=== PATIENT | female | born 1945 | race Caucasian/White ===

== ENCOUNTER → 2019-01-09 09:14 | Outpatient (CLI) | payer MEDICARE, OTHER, SELFPAY ==
[2019-01-09 09:36] LABS: Influenza A and B by PCR Rapid Negative (Negative)
== END ==
PROVIDERS: Family Provider Physician Assistant Medical; PCP Family Medicine Geriatric Medicine; Visit Provider Physician Assistant
DX: R68.89 Other general symptoms and signs (principal)
CPT/HCPCS: 87400

== ENCOUNTER → 2023-06-17 11:15 | Outpatient (CLI) | payer MEDICARE, OTHER, SELFPAY ==
--- NOTE | 2023-06-17 | DI.MG.S_ITS ---
BILATERAL DIGITAL SCREENING MAMMOGRAM 3D/2D WITH CAD: 06/17/2023 CLINICAL: Routine screening. Comparison is made to exams dated: 08/29/2017 mammogram - [facility], 08/13/2017 mammogram - [facility], 04/19/2016 mammogram, 04/05/2016 mammogram - [facility], and 09/28/2014 mammogram - [facility]. Both breasts are heterogeneously dense, which may obscure small masses (category c / 51-75% glandular tissue). Current study was also evaluated with a Computer Aided Detection (CAD) system. No significant masses, calcifications, or other findings are seen in either breast. There has been no significant interval change. IMPRESSION: NEGATIVE There is no mammographic evidence of malignancy. A 1 year screening mammogram is recommended. Based on the Tyrer Cuzick model (a risk assessment model) the patient's lifetime risk is 7.0% and her 10 year risk is 0.0%. According to the ACR, ACS, and NCCN guidelines, an annual breast MRI exam along with mammogram is recommended if the patient's lifetime risk is 20% or greater. This exam was interpreted at Station ID: [id number]. NOTE: For mammograms, a report in lay terms will be sent to the patient. Approximately 15% of breast malignancies will not be visualized mammographically. In the management of a palpable breast mass, a negative mammogram must not discourage biopsy of a clinically suspicious lesion. Electronically Signed By: Faustino harding/arcenio:06/17/2023 13:10:02 letter sent: Normal Exam ACR BI-RADS Category 1: Negative [id number]
--- NOTE | 2023-06-17 | DI.RAD.S_ITS ---
PROCEDURE: XR KNEE LT 3V INDICATIONS: ROUTINE SCREENING/ PAIN IN LEFT KNEEE TECHNIQUE: 3 views of the knee were acquired. COMPARISON: None. FINDINGS: Bones: No fractures or dislocations. No suspicious bony lesions. Moderate tricompartmental arthritic change. No erosions. Minimal periarticular osteophytes. Soft tissues: Mild joint effusion. No suspicious soft tissue calcifications. IMPRESSION: Moderate tricompartmental arthritic change. Dictated by: Kaylin Flores M.D. on 06/17/2023 at 17:06 Approved by: Kaylin Flores M.D. on 06/17/2023 at 17:06
== END ==
PROVIDERS: Family Provider Physician Assistant Medical; PCP Physician Assistant Medical; Referring Provider Physician Assistant Medical; Visit Provider Physician Assistant Medical
DX: Z12.31 Encounter for screening mammogram for malignant neoplasm of breast (principal); M25.561 Pain in right knee; M25.462 Effusion, left knee
CPT/HCPCS: 73562; 77063; 77067

== ENCOUNTER 2024-05-29 10:39 | Observation (INO) | payer MEDICARE, OTHER, SELFPAY ==
[2024-05-29] VITALS (19 sets, daily range): BP systolic 139–178; BP diastolic 67–90; PULSE 65–97; RESP 16–25; TEMP 36.7–36.9; O2SAT 94–99; BMI 23.0
--- NOTE | 2024-05-29 11:20 | DI.CT.S_ITS ---
PROCEDURE: CT LUMBAR SPINE WO CON INDICATIONS: Fall/pain TECHNIQUE: Noncontrast 3 mm thick sections acquired from the T12 level to the sacrum. Sagittal and coronal reformats were constructed. For radiation dose reduction, the following was used: automated exposure control. COMPARISON: None. FINDINGS: Image quality: Excellent. Bones: Mild dextrocurvature centered at T12. Mild degenerative change. Lower lumbar facet arthropathy. No significant canal stenosis or foraminal stenosis. No acute vertebral body compression fractures. No suspicious lytic or blastic bony lesions. No pars defects. Soft tissues: No retroperitoneal masses or hematomas. Visualized aorta is normal in caliber. IMPRESSION: No acute compression fractures. No acute bony abnormality. Dictated by: Bryn Fuller M.D. on 05/29/2024 at 12:44 Approved by: Bryn Fuller M.D. on 05/29/2024 at 12:47
--- NOTE | 2024-05-29 11:20 | DI.CT.S_ITS ---
PROCEDURE: CT ANGIO HEAD AND NECK INDICATIONS: Fall/pain TECHNIQUE: After the administration of intravenous contrast, 1 mm thick sections acquired from the aortic arch through the [place]. 3-dimensional airmpfm-ckidmzyne-idqcgxwgun (MIP) and/or volume rendering reformats were acquired of the central intracranial vasculature and neck separately. For radiation dose reduction, the following was used: automated exposure control, adjustment of mA and/or kV according to patient size. COMPARISON: [facility], CT, CT HEAD/BRAIN WO CON, 05/29/2024, 11:33. FINDINGS: Image quality: Diagnostic. BRAIN: CSF spaces: Ventricles are normal in size and shape. Basal cisterns are patent. No extra-axial fluid collections. Brain: Accompanying CT head demonstrates no acute intracranial process. Skull and face: Calvarium and facial bones appear intact, without suspicious lesions. Orbits appear normal. Sinuses: Sinuses and mastoids are clear. HEAD CT ANGIOGRAPHY: Anterior circulation: Intracranial internal carotid arteries are normal in size and flow. The flow within the paired anterior cerebral arteries is normal and symmetric. The flow within the middle cerebral arteries is normal and symmetric. Note is made of focal calcification in the wall of the right middle cerebral artery M1 segment without stenosis. The anterior communicating artery is seen. No aneurysms are seen. Posterior circulation: Visualized portions of the vertebral arteries demonstrate normal caliber, and join to form a normal appearing basilar artery. Flow within the posterior cerebral arteries is normal and symmetric. No aneurysms are seen. NECK CT ANGIOGRAPHY: Carotid system: The great vessels demonstrate a conventional anatomy as they arise from the aortic arch. The origins of the common carotid arteries appear patent. The common carotid arteries demonstrate normal caliber and courses. The bifurcation regions are both widely patent. The internal carotid arteries demonstrate normal caliber superior the high cervical left internal carotid artery is incidentally noted to be medially directed anterior to the C2 vertebral body. Posterior circulation: The origins of the vertebral arteries both appear widely patent. The more superior extracranial portions of both vertebral arteries also demonstrate normal courses and calibers. They join to form a normal appearing basilar artery. Soft tissues: Visualized neck soft tissues demonstrate no suspicious abnormalities. Bones: No suspicious bony lesions. Visualized cervical spine appears normally aligned. IMPRESSION: No significant intracranial arterial abnormality is seen. No significant abnormality is seen within the arteries of the neck. Incidental note made of medial location of the high cervical left internal carotid anterior to the C2 vertebral body. Any quantitative measurements of stenosis were performed using NASCET criteria. Dictated by: Bryn Fuller M.D. on 05/29/2024 at 12:48 Approved by: Bryn Fuller M.D. on 05/29/2024 at 12:52
--- NOTE | 2024-05-29 11:20 | DI.CT.S_ITS ---
PROCEDURE: CT HEAD/BRAIN WO CON INDICATIONS: Fall/pain TECHNIQUE: Noncontrast 4.5 mm thick angled axial sections acquired from the foramen magnum to the vertex, with coronal and sagittal reformats. For radiation dose reduction, the following was used: automated exposure control, adjustment of mA and/or kV according to patient size. COMPARISON: None. FINDINGS: Image quality: Diagnostic. CSF spaces: Basal cisterns are patent. No extra-axial fluid collections. The ventricles are symmetric in size and shape. Brain: No intracranial bleeds or masses. There is cerebral volume loss for age, with resultant ventricular and sulcal prominence. There are periventricular and deep white matter chronic small vessel ischemic changes. There is intracranial internal carotid artery atherosclerosis. Skull and face: Calvarium and visualized facial bones appear intact, without suspicious lesions. Sinuses: Visualized sinuses and mastoids are clear. IMPRESSION: No acute intracranial pathology. Dictated by: Bryn Fuller M.D. on 05/29/2024 at 12:47 Approved by: Bryn Fuller M.D. on 05/29/2024 at 12:48
--- NOTE | 2024-05-29 11:22 | ED.NEUROSD ---
HPI - Neuro Symptoms/Deficit General Chief Complaint: Neuro Symptoms/Deficit Stated Complaint: arellano spot in vision, poss stroke sent by provider Time Seen by Provider: 05/29/24 11:13 History of Present Illness HPI Narrative: Patient sent here by Dr. Rey, spout tender concerning for left eye retinal artery occlusion. Concerning for a stroke. He did eye exam on patient. Patient denies any numbness tingling weakness slurred speech facial droop. Friend at bedside. No prior history of stroke. Patient is not on any blood thinners. Patient states yesterday morning around 7:00 a.m. had sudden onset of left eye visual disturbance, visual field around the 7 9 o'clock position of the clock where she can not see very well. Denies any eye pain. Later in the day she was working in his shed trying to put up some plywood and she fell and hit her head on the right side. Has had headache since then. Patient is not on any blood thinners. Also complains of neck pain and lower back pain. Fast exam is negative. Blood pressure noted and patient states usually not elevated. Denies any chest pain numbness tingling or weakness. On Anticoagulants: No Related Data Home Medications Medication Instructions Recorded Confirmed cholecalciferol (vitamin D3) 25 5,000 u PO QDAY ##0 11/27/16 05/29/24 mcg (1,000 unit) tablet (Vitamin D3) clonazepam 0.5 % (w/w) PO DAILY PRN Insomnia 01/09/19 05/29/24 gabapentin 600 mg tablet 600 mg PO BID 01/09/19 05/29/24 omeprazole 20 mg capsule,delayed 20 mg PO DAILY 01/09/19 05/29/24 release glucosamine-chondroitin 1,500 mg 30 ml PO DAILY 05/29/24 05/29/24 -1,200 mg/30 mL oral liquid turmeric 400 mg capsule 400 mg PO DAILY 05/29/24 05/29/24 Previous Rx's Medication Instructions Recorded aspirin 81 mg tablet,delayed 81 mg PO BID #90 tabs 05/30/24 release atorvastatin 20 mg tablet 40 mg (2 x 20 mg) PO BEDTIME #90 05/30/24 tabs clopidogrel 75 mg tablet 75 mg PO DAILY #19 tabs 05/30/24 Allergies Allergy/AdvReac Type Severity Reaction Status Date / Time No Known Allergies Allergy Unknown Verified 04/12/19 09:17 [NO KNOWN ALLERGIES] INGREDIENT: NKDA - NO KNOWN Allergy Unknown Uncoded 01/08/18 12:17 DRUG ALLERGIES Review of Systems Review of Systems Narrative: GENERAL: negative chills, fatigue, malaise, fever, sweats. HEENT: negative sinus pain, ear pain, sore throat RESPIRATORY: negative dyspnea, cough CARDIOVASCULAR: negative chest pain, palpitations GASTROINTESTINAL: negative nausea, vomiting, abdominal pain : negative dysuria, frequency, hematuria MUSCULOSKELETAL: negative muscle or bony pain SKIN: negative rash, skin lesions NEUROLOGIC: negative weakness, numbness, positive vision changes palm positive headache Hematologic/Lymphatic On Anticoagulants: No Patient History Medical History (Updated 05/30/24 @ 10:49 by Sherry Talley MD) Acute retinal artery occlusion Surgical History Status post surgery (10/18/14) Status post dilation and curettage (02/17/80) Status post laparoscopy Status post appendectomy Status post tonsillectomy and adenoidectomy History of third molar tooth extraction Social History household members: none Smoking Status: Never smoker alcohol intake: current Smoking Status: Never smoker Exam Narrative Exam Narrative: GENERAL: in no distress, not toxic not dyspneic HEAD: Normocephalic. EYES: Pupils equal round ENT: Mucous membranes moist. NECK: Trachea midline. No carotid bruit CARDIOVASCULAR: Regular rate and rhythm RESPIRATORY: Clear to auscultation. Breath sounds equal bilaterally. No wheezes, rales, or rhonchi. GASTROINTESTINAL: Abdomen soft, non-tender EXTREMITIES: No gross deformities. BACK: No flank tenderness. NEURO: AOx4. Clear speech no facial droop. ?Light touch intact to bilateral face hands and feet. ?Strong equal performance consultant bilaterally and ankle flexion hip flexion and knee flexion. ?Strong bilateral patellar reflexes. ?No pronator drift. ? SKIN: Warm and dry PSYCH: Not anxious, is cooperative Initial Vital Signs Initial Vital Signs: Vital Signs Pulse Rate 89 05/29/24 10:51 Scores NIH Stroke Scale Level of Conciousness: Alert, keenly responsive Ask month/age: Answers both questions correctly. Open/close eyes, close hand: Performs both tasks correctly Best gaze horizontal: Normal Visual cary: No visual loss Facial palsy: Normal symetrical movement Left arm drift: No drift for full 10 sec Right arm drift: No drift for full 10 sec Left leg drift: No drift for full 5 sec Right leg drift: No drift for full 5 sec Limb ataxia: Absent Sensory on face/arms/legs: Normal, no sensory loss Best language: No aphasia, normal Dysarthria: Normal Extinction or inattention: No abnormality Total NIH Stroke scale score: 0 Course Orders Ordered: Discontinued Medications Acetaminophen (Acetaminophen 325 Mg Tablet) 975 mg PO NOW ONE Stop: 05/29/24 14:57 Last Admin: 05/29/24 15:01 Dose: 975 mg Documented By: LEILANI Acetaminophen (Acetaminophen 325 Mg Tablet) 650 mg PO Q6H PRN PRN Reason: Fever/Mild Pain (1-3) Last Admin: 05/29/24 20:28 Dose: 650 mg Documented By: RAGHU Aspirin (Aspirin Ec 325 Mg Tablet) 325 mg PO NOW ONE Stop: 05/29/24 15:24 Last Admin: 05/29/24 17:02 Dose: 325 mg Documented By: OBEY Aspirin (Aspirin Ec 81 Mg Tablet) 81 mg PO BID [facility] Last Admin: 05/30/24 08:39 Dose: 81 mg Documented By: Admin: 05/29/24 20:27 Dose: 81 mg Documented By: RAGHU Atorvastatin Calcium (Atorvastatin 20 Mg Tablet) 40 mg PO BEDTIME [facility] Last Admin: 05/29/24 20:27 Dose: 40 mg Documented By: RAGHU Clopidogrel Bisulfate (Clopidogrel 75 Mg Tablet) 75 mg PO DAILY [facility] Last Admin: 05/30/24 08:39 Dose: 75 mg Documented By: OBEY Clopidogrel Bisulfate (Clopidogrel 75 Mg Tablet) 300 mg PO NOW ONE Stop: 05/29/24 15:24 Last Admin: 05/29/24 17:02 Dose: 300 mg Documented By: OBEY Sodium Chloride (Normal Saline 0.9%) 500 mls @ 1,000 mls/hr IV BOLUS ONE Stop: 05/29/24 11:55 Last Infusion: 05/29/24 12:26 Dose: Infused Documented By: Admin: 05/29/24 11:39 Dose: 1,000 mls/hr Documented By: JOSE Naloxone HCl (Naloxone 0.4 Mg/Ml Vial) 0.2 mg IV Q2MIN PRN PRN Reason: Opiate Reversal Ondansetron HCl (Ondansetron 4 Mg/2 Ml Inj) 4 mg IV Q8HR PRN PRN Reason: Nausea And Vomiting Pantoprazole Sodium (Pantoprazole Dr 20 Mg Tablet) 20 mg PO 0700 LARISA Last Admin: 05/30/24 06:14 Dose: 20 mg Documented By: RAGHU Vital Signs Vital signs: Vital Signs - 8 hr 05/29/24 10:51 05/29/24 10:52 05/29/24 10:53 Temperature 98.4 F Pulse Rate 89 97 H Respiratory Rate 16 Blood Pressure 178/85 H 178/85 H Pulse Oximetry 99 Oxygen Delivery Method Room Air 05/29/24 10:53 05/29/24 11:00 05/29/24 11:00 Temperature Pulse Rate 90 82 Respiratory Rate 22 25 H Blood Pressure 176/73 H Pulse Oximetry 97 97 Oxygen Delivery Method 05/29/24 11:41 05/29/24 11:42 05/29/24 11:42 Temperature Pulse Rate 75 75 Respiratory Rate 21 Blood Pressure 158/74 H Pulse Oximetry 96 96 Oxygen Delivery Method 05/29/24 11:45 05/29/24 11:45 05/29/24 12:00 Temperature Pulse Rate 79 Respiratory Rate 18 Blood Pressure 150/69 H 146/67 H Pulse Oximetry 97 Oxygen Delivery Method 05/29/24 12:00 05/29/24 12:15 05/29/24 12:15 Temperature Pulse Rate 75 78 Respiratory Rate 22 Blood Pressure 153/69 H Pulse Oximetry 97 96 Oxygen Delivery Method 05/29/24 12:30 05/29/24 13:00 05/29/24 13:30 Temperature Pulse Rate 77 74 74 Respiratory Rate 21 Blood Pressure Pulse Oximetry 97 94 95 Oxygen Delivery Method MDM - Neuro Symptoms/Deficit Lab Data 05/30/24 11:11 05/30/24 11:11 Labs: Lab Results 05/29/24 Range/Units 10:50 WBC 7.4 (4.5-11.0) X10^3/uL RBC 4.73 (4.0-5.2) X10^6/uL Hgb 14.2 (12.0-16.0) g/dL Hct 42.0 (36-46) % MCV 88.7 (80-100) fL MCH 30.0 (26-34) PG MCHC 33.8 (30-36) % RDW 13.4 (11.6-14.8) % Plt Count 248 (150-400) X10^3/uL Neut % (Auto) 50.4 (50-75) % Lymph % (Auto) 31.8 (25-40) % [place] % (Auto) 9.4 (3-14) % Eos % (Auto) 7.4 H (2-4) % Baso % (Auto) 1.0 (0-2) % Neut # (Auto) 3700 (0092-9413) /uL Lymph # (Auto) 2300 (4870-9981) /uL [place] # (Auto) 700 (0-900) /uL Eos # (Auto) 500 H (0-450) /uL Baso # (Auto) 100 (0-100) /uL ESR 6 (0-20) MM/HR PT 10.5 (9.4-12.5) SECONDS INR 0.9 (0.9-1.3) APTT 32 (25.1-36.5) SECONDS Sodium 140 (137-145) mmol/L Potassium 3.7 (3.4-5.1) mmol/L Chloride 107 (98-107) mmol/L Carbon Dioxide 23 (22-32) mmol/L BUN 16 (7-17) mg/dL Creatinine 0.67 (0.52-1.04) mg/dL Estimated GFR > 60 (>60) mL/min BUN/Creatinine Ratio 23.9 H (6-22) Glucose 127 H (80-110) mg/dL Calcium 9.2 (8.4-10.2) mg/dL Total Bilirubin 0.4 (0.2-1.3) mg/dL AST 27 (14-36) IU/L ALT 22 (<35) IU/L Alkaline Phosphatase 85 (38-126) U/L C-Reactive Protein < 0.5 (<1.0) mg/dL Total Protein 7.2 (6.3-8.2) g/dL Albumin 4.4 (3.5-5.0) g/dL Globulin 2.8 (1.7-4.1) g/dL Albumin/Globulin Ratio 1.6 (1.0-2.8) Imaging Data CT scan - head: Radiologist's Impression: [address] [address] [address] Scan Report Signed Patient: Marely Lucia MR#: [id number] : 1945 Acct:[id number] Age/Sex: 78 / F Date of Service: 05/29/24 Loc: ED Accession Number: [id number] Procedure: CT head/brain wo con Ordering Provider: Monroe Beasley MD PROCEDURE: CT HEAD/BRAIN WO CON INDICATIONS: Fall/pain TECHNIQUE: Noncontrast 4.5 mm thick angled axial sections acquired from the foramen magnum to the vertex, with coronal and sagittal reformats. For radiation dose reduction, the following was used: automated exposure control, adjustment of mA and/or kV according to patient size. COMPARISON: None. FINDINGS: Image quality: Diagnostic. CSF spaces: Basal cisterns are patent. No extra-axial fluid collections. The ventricles are symmetric in size and shape. Brain: No intracranial bleeds or masses. There is cerebral volume loss for age, with resultant ventricular and sulcal prominence. There are periventricular and deep white matter chronic small vessel ischemic changes. There is intracranial internal carotid artery atherosclerosis. Skull and face: Calvarium and visualized facial bones appear intact, without suspicious lesions. Sinuses: Visualized sinuses and mastoids are clear. IMPRESSION: No acute intracranial pathology. Dictated by: Bryn Fuller M.D. on 05/29/2024 at 12:47 Approved by: Bryn Fuller M.D. on 05/29/2024 at 12:48 CTA - brain/neck: Radiologist's Impression: [address] [address] [address] Scan Report Signed Patient: Marely Lucia MR#: [id number] : 1945 Acct:[id number] Age/Sex: 78 / F Date of Service: 05/29/24 Loc: ED Accession Number: [id number] Procedure: CT angio head and neck Ordering Provider: Monroe Beasley MD PROCEDURE: CT ANGIO HEAD AND NECK INDICATIONS: Fall/pain TECHNIQUE: After the administration of intravenous contrast, 1 mm thick sections acquired from the aortic arch through the [place] of [place]. 3-dimensional zdgiyzo-rvvgrcuaa-ipssgyatsh (MIP) and/or volume rendering reformats were acquired of the central intracranial vasculature and neck separately. For radiation dose reduction, the following was used: automated exposure control, adjustment of mA and/or kV according to patient size. COMPARISON: [facility], CT, CT HEAD/BRAIN WO CON, 05/29/2024, 11:33. FINDINGS: Image quality: Diagnostic. BRAIN: CSF spaces: Ventricles are normal in size and shape. Basal cisterns are patent. No extra-axial fluid collections. Brain: Accompanying CT head demonstrates no acute intracranial process. Skull and face: Calvarium and facial bones appear intact, without suspicious lesions. Orbits appear normal. Sinuses: Sinuses and mastoids are clear. HEAD CT ANGIOGRAPHY: Anterior circulation: Intracranial internal carotid arteries are normal in size and flow. The flow within the paired anterior cerebral arteries is normal and symmetric. The flow within the middle cerebral arteries is normal and symmetric. Note is made of focal calcification in the wall of the right middle cerebral artery M1 segment without stenosis. The anterior communicating artery is seen. No aneurysms are seen. Posterior circulation: Visualized portions of the vertebral arteries demonstrate normal caliber, and join to form a normal appearing basilar artery. Flow within the posterior cerebral arteries is normal and symmetric. No aneurysms are seen. NECK CT ANGIOGRAPHY: Carotid system: The great vessels demonstrate a conventional anatomy as they arise from the aortic arch. The origins of the common carotid arteries appear patent. The common carotid arteries demonstrate normal caliber and courses. The bifurcation regions are both widely patent. The internal carotid arteries demonstrate normal caliber superior the high cervical left internal carotid artery is incidentally noted to be medially directed anterior to the C2 vertebral body. Posterior circulation: The origins of the vertebral arteries both appear widely patent. The more superior extracranial portions of both vertebral arteries also demonstrate normal courses and calibers. They join to form a normal appearing basilar artery. Soft tissues: Visualized neck soft tissues demonstrate no suspicious abnormalities. Bones: No suspicious bony lesions. Visualized cervical spine appears normally aligned. IMPRESSION: No significant intracranial arterial abnormality is seen. No significant abnormality is seen within the arteries of the neck. Incidental note made of medial location of the high cervical left internal carotid anterior to the C2 vertebral body. Any quantitative measurements of stenosis were performed using NASCET criteria. Dictated by: Bryn Fuller M.D. on 05/29/2024 at 12:48 Approved by: Bryn Fuller M.D. on 05/29/2024 at 12:52 CT lumbar spine: Radiologist's Impression: [address] [address] [address] Scan Report Signed Patient: Marely Lucia MR#: [id number] : 1945 Acct:[id number] Age/Sex: 78 / F Date of Service: 05/29/24 Loc: Accession Number: [id number] Procedure: CT lumbar spine wo con Ordering Provider: Monroe Beasley MD PROCEDURE: CT LUMBAR SPINE WO CON INDICATIONS: Fall/pain TECHNIQUE: Noncontrast 3 mm thick sections acquired from the T12 level to the sacrum. Sagittal and coronal reformats were constructed. For radiation dose reduction, the following was used: automated exposure control. COMPARISON: None. FINDINGS: Image quality: Excellent. Bones: Mild dextrocurvature centered at T12. Mild degenerative change. Lower lumbar facet arthropathy. No significant canal stenosis or foraminal stenosis. No acute vertebral body compression fractures. No suspicious lytic or blastic bony lesions. No pars defects. Soft tissues: No retroperitoneal masses or hematomas. Visualized aorta is normal in caliber. IMPRESSION: No acute compression fractures. No acute bony abnormality. Dictated by: Bryn Fuller M.D. on 05/29/2024 at 12:44 Approved by: Bryn Fuller M.D. on 05/29/2024 at 12:47 MRI brain: Radiologist's Impression: [address] [address] Magnetic Resonance Report Signed Patient: Marely Lucia MR#: [id number] : 1945 Acct:[id number] Age/Sex: 78 / F Date of Service: 05/29/24 Loc: [place] [address] Accession Number: [id number] Procedure: MR head/brain wo con Ordering Provider: Monroe Beasley MD PROCEDURE: MR HEAD/BRAIN WO CON INDICATIONS: Stroke/left eye vision deficit TECHNIQUE: Non-contrast axial T1 spin echo, axial T2 fast spin echo, sagittal and axial FLAIR, coronal T2 fast spin echo, axial gradient echo, axial diffusion and ADC through the brain. COMPARISON: None. FINDINGS: Image quality: Diagnostic, with note made of motion artifact. CSF spaces: Ventricles appear symmetric in size and shape. Basal cisterns are patent. No extra-axial fluid collections. Brain: No intracranial bleeds or mass effects. There is cerebral volume loss for age. There are periventricular and deep white matter chronic small vessel ischemic changes. Brainstem appears normal. Diffusion-weighted images show no acute infarct. No chronic ischemic insults. Normal intravascular flow voids are present. Skull and face: Calvarial bone marrow is normal in signal. Orbits are normal. Note is made of bilateral lens replacements. Sinuses: Sinuses and mastoids are clear. IMPRESSION: No findings of acute or subacute infarction can be seen. No prior territorial infarct can be seen. Note is made of age-appropriate brain parenchymal volume loss and chronic small vessel ischemic changes. Dictated by: Derek Soriano M.D. on 05/29/2024 at 14:12 Approved by: Derek Soriano M.D. on 05/29/2024 at 14:13 [facility] Narrative Medical decision making narrative: Patient sent here by Dr. Rey, spout tender concerning for left eye retinal artery occlusion. Concerning for a stroke. He did eye exam on patient. Patient denies any numbness tingling weakness slurred speech facial droop. Friend at bedside. No prior history of stroke. Patient is not on any blood thinners. Patient states yesterday morning around 7:00 a.m. had sudden onset of left eye visual disturbance, visual field around the 7 9 o'clock position of the clock where she can not see very well. Denies any eye pain. Later in the day she was working in his shed trying to put up some plywood and she fell and hit her head on the right side. Has had headache since then. Patient is not on any blood thinners. Also complains of neck pain and lower back pain. Fast exam is negative. Blood pressure noted and patient states usually not elevated. Denies any chest pain numbness tingling or weakness. After history and exam CT head CT angio head and neck EKG CBC CMP, patient denies any left temporal pain MDM Medical records reviewed: No recent visit for this complaint Differential considered: Includes but not limited to stroke TIA giant cell arteritis Lab Test results independently reviewed as above. Pertinent findings: WBC 7.4 hemoglobin 14.2 INR 0.9 sodium 140 potassium 3.7 Independently reviewed EKG normal sinus rhythm rate [address] elevation or depression Imaging studies independently reviewed: CT head CT angiogram head neck no acute finding, MRI brain no acute finding Consultations: 3:[address] Sin, hospitalist, who will admit patient Treatments: Normal saline Re-evaluations: 3:05 p.m.. Updated patient will be admitted. Echocardiogram being done. MRI has been completed. Awaiting results. Needs further workup for retinal artery occlusion/rule out stroke Discussion: Appropriate for admission for about 2 workup for stroke/retinal artery occlusion. I did speak with Dr. Rey, no intervention indicated at this time from ophthalmology. No treatments for the finding of retinal artery occlusion. Diagnosis: Retinal artery occlusion Stroke Core Measures Exclusion Criteria TPA in CVA: Symptom Onset >3 or 4.5 Hours Discharge Plan Departure Patient Disposition: Admitted as Observation Clinical Impression: Acute retinal artery occlusion Admit Date/Time: 05/29/24 15:00 Admit Provider: Juan Sin
[2024-05-29 11:26] LABS: Add Manual Diff / Slide Review NO; Basophils Absolute Auto 100 /uL (0-100); Eosinophils Absolute Auto 500 /uL (0-450); Eosinophils Percent Auto 7.4 % (2-4); Hemoglobin 14.2 g/dL (12.0-16.0); Lymphocytes Absolute Auto 2300 /uL (1100-4500); Lymphocytes Percent Auto 31.8 % (25-40); Mean Corpuscular HGB Conc 33.8 % (30-36); Mean Corpuscular Volume 88.7 fL (80-100); Monocytes Absolute Auto 700 /uL (0-900); Monocytes Percent Auto 9.4 % (3-14); Neutrophils Absolute Auto 3700 /uL (1500-7000); Neutrophils Percent Auto 50.4 % (50-75); Platelet Count 248 X10^3/uL (150-400); Red Blood Cell Count 4.73 X10^6/uL (4.0-5.2); Red Cell Distribution Width 13.4 % (11.6-14.8); White Blood Cell Count 7.4 X10^3/uL (4.5-11.0)
[2024-05-29 11:28] LABS: INR 0.9 (0.9-1.3); Prothrombin Time 10.5 SECONDS (9.4-12.5)
[2024-05-29 11:31] LABS: PTT Partial Thromboplastin Tim 32 SECONDS (25.1-36.5)
[2024-05-29 11:33] LABS: Alanine Aminotransferase 22 IU/L (<35); Albumin 4.4 g/dL (3.5-5.0); Albumin Globulin Ratio 1.6 (1.0-2.8); Alkaline Phosphatase 85 U/L (38-126); Aspartate Aminotransferase 27 IU/L (14-36); BUN Creatinine Ratio 23.9 (6-22); Bilirubin Total 0.4 mg/dL (0.2-1.3); Blood Urea Nitrogen 16 mg/dL (7-17); Calcium 9.2 mg/dL (8.4-10.2); Carbon Dioxide 23 mmol/L (22-32); Chloride 107 mmol/L (98-107); Estimated Glomerular Filt Rate > 60 mL/min (>60); Globulin 2.8 g/dL (1.7-4.1); Glucose 127 mg/dL (80-110); HEMOLYSIS 26 (0-50); Potassium 3.7 mmol/L (3.4-5.1); Sodium 140 mmol/L (137-145); Total Protein 7.2 g/dL (6.3-8.2)
[2024-05-29] MEDS: SODIUM CHLORIDE 0.9% 500 ML 1000 ML IV (11:39)
[2024-05-29 11:41] LABS: C-Reactive Protein Quant < 0.5 mg/dL (<1.0)
--- NOTE | 2024-05-29 11:49 | EKG_ITS ---
[place] [address] [place] [address] Test Date: 2024-05-29 Pat Name: Marely Lucia Department: [facility] Room: Gender: Female Damage Appraiser: KAVITHA : 1945 Requested By: Order Number: [id number] Reading MD: Juan Sin Measurements Intervals Sandy Rate: 72 P: 46 MO: 200 QRS: -63 QRSD: 80 T: 24 QT: 398 QTc: 435 Interpretive Statements Normal sinus rhythm Left anterior fascicular block Electronically Signed On 05-29-2024 20:14:54 PDT by Juan Sin
[2024-05-29 11:58] LABS: Erythrocyte Sedimentation Rate 6 MM/HR (0-20)
--- NOTE | 2024-05-29 12:21 | DI.MRI.S_ITS ---
PROCEDURE: MR HEAD/BRAIN WO CON INDICATIONS: Stroke/left eye vision deficit TECHNIQUE: Non-contrast axial T1 spin echo, axial T2 fast spin echo, sagittal and axial FLAIR, coronal T2 fast spin echo, axial gradient echo, axial diffusion and ADC through the brain. COMPARISON: None. FINDINGS: Image quality: Diagnostic, with note made of motion artifact. CSF spaces: Ventricles appear symmetric in size and shape. Basal cisterns are patent. No extra-axial fluid collections. Brain: No intracranial bleeds or mass effects. There is cerebral volume loss for age. There are periventricular and deep white matter chronic small vessel ischemic changes. Brainstem appears normal. Diffusion-weighted images show no acute infarct. No chronic ischemic insults. Normal intravascular flow voids are present. Skull and face: Calvarial bone marrow is normal in signal. Orbits are normal. Note is made of bilateral lens replacements. Sinuses: Sinuses and mastoids are clear. IMPRESSION: No findings of acute or subacute infarction can be seen. No prior territorial infarct can be seen. Note is made of age-appropriate brain parenchymal volume loss and chronic small vessel ischemic changes. Dictated by: Derek Soriano M.D. on 05/29/2024 at 14:12 Approved by: Derek Soriano M.D. on 05/29/2024 at 14:13
--- NOTE | 2024-05-29 12:21 | DI.ECHO.S_ITS ---
[facility]+ [facility] : : [address] : : [place] : : [id number] : : Phone: [phone] Echocardiogram Report + + :Name: QASIM KING Study Date: 05/29/2024 Height: 60 in : :[facility] ReadingLocation: Weight: 118 lb: : Gender: Female BSA: 1.5 m2 : :: 1945 Age: 78 yrs : :Reason For Study: STROKE : :Ordering Physician: FREDIS, : :CHARLEEN Performed By: Jennifer Hoffmann : :Referring: CHARLEEN MCNEAL : + + Interpretation Summary 1. The left ventricular contractility is normal. Estimated ejection fraction is greater than 55% with no segmental wall motion abnormalities. No left ventricular hypertrophy. Unable to comment on diastolic function. 2. The right ventricular contractility appears normal. 3. No significant tricuspid valve pathology present. 4. No obvious intracardiac shunt present but no agitated saline contrast study performed. 5. No obvious ventricular masses nor thrombi. 6. No hemodynamically significant pericardial effusion. Conclusion: Normal biventricular systolic function with no obvious intracardiac shunts. Procedure: Images were not obtained from all of the standard acoustic windows due to the limited scope of the study. The study quality was technically limited. The study quality was technically adequate. There is no prior echocardiogram noted for this patient. The patient was in sinus rhythm with heart rates between 67-79 bpm during the exam. Left Ventricle: The left ventricle is normal in size. Proximal septal thickening is noted. The ejection fraction is estimated to be 55-60%. Atria: There is no Doppler evidence for an interatrial shunt. Aortic Valve: There is no aortic valve stenosis. Tricuspid Valve: There is trace tricuspid regurgitation. The right ventricular systolic pressure is estimated to be at least 20 mmHg based on an estimated right atrial pressure of 3 mm Hg. Pericardium/ Pleura There is no pericardial effusion. There is no pleural effusion. MMode/2D Measurements & Calculations LVIDd: 4.2 cm LVOT diam: 2.0 cm LVIDs: 2.8 cm FS: 33.1 % IVSd: 0.81 cm LVPWd: 0.67 cm LV bernard. diameter/BSA (cm/m^2): 2.8 LV sys. diameter/BSA (cm/m^2): 1.9 IVC diam: 1.9 cm Doppler Measurements & Calculations Ao V2 max: 136.3 cm/sec LVOT Max Grey: 114.0 cm/sec Ao V2 mean: 96.2 cm/sec LV V1 max P.2 mmHg Ao max P.4 mmHg LV V1 VTI: 25.2 cm Ao mean P.2 mmHg NORA(I,D): 2.7 cm2 Ao V2 VTI: 28.6 cm NORA(V,D): 2.5 cm2 sev ratio: 0.88 NORA indexed to BSA (cm^2/m^2): 1.8 TR max grey: 208.2 cm/sec SV(LVOT): 76.0 ml TR max P.3 mmHg Reading Physician:
[2024-05-29] MEDS: ACETAMINOPHEN 325 MG TABLET 975 MG PO (15:01)
[2024-05-29] MEDS: ASPIRIN EC 325 MG TABLET PO (17:02)
[2024-05-29] MEDS: CLOPIDOGREL 75 MG TABLET 300 MG PO (17:02)
--- NOTE | 2024-05-29 17:50 | OT.IP.EVAL ---
Surgical History (Last Reviewed 05/29/24 @ 14:19 by Monroe Beasley MD) History of third molar tooth extraction Status post appendectomy Status post dilation and curettage (02/17/80) Status post laparoscopy Status post surgery (10/18/14) Status post tonsillectomy and adenoidectomy Occupational Therapy Inpatient Evaluation/Re-Eval M1 PT/OT-IP Prior Functional Status Start: 05/29/24 17:43 Freq: NEEDED Status: Active Protocol: Document 05/29/24 17:44 [facility] (Rec: 05/29/24 18:17 [facility] [id number]) Medical Review Prior Functional Status Medical History Reviewed Yes Communication Independent Mobility and Gait Independent no devices. Has a cane at home that she does not use. Activities of Daily Living and IADL's Completely independent with all ADL and IADL needs. Social History Household Members none Living Arrangements House Number of Floors (Floors) One Floor Number of Stairs To Enter/Railing? One step to enter the house. Home Environment Standard Height Toilet,Walk in Shower Home Equipment Straight Cane M2 OT-IP Current Condition Start: 05/29/24 17:43 Freq: Status: Active Protocol: Document 05/29/24 17:44 [facility] (Rec: 05/29/24 18:17 [facility] [id number]) Occupational Therapy Current Condition Current Condition Evaluation Date 05/29/24 Treatment Diagnosis Blurred left vision Diagnosis Onset Date 05/29/24 M3 OT- IP Subjective and Pain Start: 05/29/24 17:43 Freq: Status: Active Protocol: Document 05/29/24 17:44 [facility] (Rec: 05/29/24 18:17 [facility] [id number]) OT- Subjective Occupational Therapy Visit Type Type Initial Evaluation Visit Start Time 17:00 Visit Stop Time 17:50 Occupational Therapy Visit Comments Patient Comments Pt agreed to get up for OT eval. Patient/Caregiver Goals TO go home. OT Pain Assessment Pain When Pain Assessed At Rest Pain Present Pain Present Pain Reported Location Generalized Description Aching M4 OT- IP ADL's Start: 05/29/24 17:43 Freq: Status: Active Protocol: Document 05/29/24 17:44 [facility] (Rec: 05/29/24 18:17 [facility] [id number]) OT ACI-Odzi-Uofrgnh General Evaluation Self-Feeding Ability Independent OT ADL-Grooming General Evaluation Grooming Ability Independent OT ADL-Oral Care General Eval Oral Care Ability Independent OT ADL-Dressing General Eval Lower Body Dressing Ability Standby Assistance Comments OT Dressing Comments Pt agreed to just sit to do LB dressing for now as prior would stand for dressing needs . OT ADL-Toileting Comments OT Toileting Comments Pt states able to use the toilet independently on her own in the room. Pt states does have a night light in the bathroom. Suggested to be sure that her cats not in the room at night. OT ADL-Bathing Comments OT Bathing Comments Suggested pt get a shower chair and non slip mat. M5 OT- IP IADL's Start: 05/29/24 17:43 Freq: Status: Active Protocol: Document 05/29/24 17:44 [facility] (Rec: 05/29/24 18:17 [facility] [id number]) OT-Instrumental Activities of Daily Living Home Safety Awareness Awareness of Need for Assistance at Home Good Awareness Ability to Problem Solve Emergency Able to Problem Solve Situations Medication Management Medication Management No Deficits Identified Money Management Money Management No Deficits Identified Meal Preparation Meal Preparation Comments Educated pt to be careful due to vision deficits with her left eye. M6 OT- IP Functional Cognition Start: 05/29/24 17:43 Freq: Status: Active Protocol: Document 05/29/24 17:44 [facility] (Rec: 05/29/24 18:17 [facility] [id number]) Cognitive Factors Limiting Selfcare Function Cognitive Ability Level of Alertness Alert Patient Orientation Name,Age,Birthday,Month,Date, Year,Day of Week,Place, Situation Attention Span Ability Capable of Focused Attention, Capable of Sustained Attention Ability to Follow Commands Able to Follow Multi-Step Commands Memory Description Immediate Intact Safety Awareness No Deficits Noted Problem Solving Ability No deficits Noted Executive Function Ability No Deficits Noted Cognitive Comments Cognitive Assessment Comments Pt scored 84 seconds on [place] Making Part B which is 70% for her age group. Pt score implies mild impairments for for visual attention, task switching, mental flexibility, executive functioning, and speed of processing. OT- Vision and Hearing OT- Hearing Assessment OT- Hearing Assessment WFL OT- Vision Assessment Visual Attentiveness WFL Visual Convergence WFL Visual [place] WFL Vision Assessment Comments Pt when just seeing out of her left eye, states seeing tan spot on the lower left vision. M7 OT- IP Mobility and Balance Start: 05/29/24 17:43 Freq: Status: Active Protocol: Document 05/29/24 17:44 [facility] (Rec: 05/29/24 18:17 [facility] [id number]) OT- Bed Mobility Assessment Supine to Sit Supine to Sit Assist Independent Sit to Supine Sit to Supine Assist Independent OT-Transfer Assessment Sit to and From Stand Sit to and from Stand Independent Transfers Transfer Ability Independent Technique Transfer Destination Bed Transfer Technique Stand Step Pivot Devices Transfer Assistive Devices None Comments Mobility Comments Pt able to step up and down on a step independently on her own. OT- Balance Assessment Sitting Balance and Reactions Static Sitting Balance Ability Normal Dynamic Sitting Balance Ability Normal Standing Balance and Reactions Static Standing Balance Ability Good Dynamic Standing Balance Ability Fair M8 OT- IP Objective Assessments Start: 05/29/24 17:43 Freq: Status: Active Protocol: Document 05/29/24 17:44 [facility] (Rec: 05/29/24 18:17 [facility] [id number]) OT Gross Range of Motion Upper Extremity Range of Motion Assessment Within Functional Limits OT Strength Upper Extremity Strength Assessment Within Functional Limits OT- Coordination Assessment Upper Extremity Finger to Nose Test Within Functional Limits OT-Muscle Tone Assessment Muscle Tone WNL Yes OT Sensation Assessment Comments Summary Comments Light touch, pt states feeling slightly off from proprioception for left hand. Edema Edema Absent M9 OT- IP Assessment and Plan Start: 05/29/24 17:43 Freq: Status: Active Protocol: Document 05/29/24 17:44 [facility] (Rec: 05/29/24 18:17 [facility] [id number]) OT Summary Assessment and Plan Potential Rehabilitation Potential Excellent Analytic Complexity at Evaluation Low Summary OT Impairments Functional Mobility,Dressing, Bathing Progress Towards Goals Progressing Toward Goals Goals Bathing Goal Independent Days to Meet Goals 1 Frequency of Treatment Frequency Of Treatment Once a Day Treatment Plan OT Treatment Plan Vision Retraining,Patient/ Family Education,Discharge Planning Discharge Recommendations OT Discharge Recommendations Home Other Discharge Recommendations Assist from friend as needed. Home Equipment Needs shower chair Transportation Needs at Discharge Private Vehicle
--- NOTE | 2024-05-29 19:20 | P.HP_ITS ---
History of Present Illness History of Present Illness Date Patient Seen: 05/29/24 Time Patient Seen: 19:20 Chief complaint: arellano spot in vision, poss stroke sent by provider Narrative: 78 year old female with no significant PMH, mild GERD who presented with acute onset of left vision change starting yesterday morning. Patient went to see the fine chemicals operator who noted evidence of a retinal artery occlusion on the L and sent patient to the ER. She does report intermittent brief palpitations, and neck pain with occasional headaches. Denies fever, chills, nausea, vomiting, diarrhea, rash, dysuria or urinary frequency. In the ER, Patient was mildly hypertensive, but the remainder of her vitals were unremarkable. Laboratory evaluation was unremarkable. ESR was 6. Initial head CT showed no hemorrhage, and CT angiogram was without significant carotid disease. MRI of brain has already been performed and did not show any acute infarcts. Echocardiogram was performed which showed a normal ejection fraction, no PF, and no atrial enlargement. She was admitted for further observation after retinal artery occlusion. [facility] [place] Surgical History Status post surgery (10/18/14) Status post dilation and curettage (02/17/80) Status post laparoscopy Status post appendectomy Status post tonsillectomy and adenoidectomy History of third molar tooth extraction Social History household members: none Smoking Status: Never smoker alcohol intake: current Meds Home Medications and Allergies Home Medications Medication Instructions Recorded Confirmed Type cholecalciferol (vitamin D3) 25 5,000 u PO QDAY ##0 11/27/16 05/29/24 History mcg (1,000 unit) tablet (Vitamin D3) clonazepam 0.5 % (w/w) PO DAILY PRN Insomnia 01/09/19 05/29/24 History gabapentin 600 mg tablet 600 mg PO BID 01/09/19 05/29/24 History omeprazole 20 mg capsule,delayed 20 mg PO DAILY 01/09/19 05/29/24 History release glucosamine-chondroitin 1,500 mg 30 ml PO DAILY 05/29/24 05/29/24 History -1,200 mg/30 mL oral liquid turmeric 400 mg capsule 400 mg PO DAILY 05/29/24 05/29/24 History Allergies Allergy/AdvReac Type Severity Reaction Status Date / Time No Known Allergies Allergy Unknown Verified 01/09/19 09:17 [NO KNOWN ALLERGIES] INGREDIENT: NKDA - NO KNOWN Allergy Unknown Uncoded 01/08/18 12:17 DRUG ALLERGIES Review of Systems Review of Systems Narrative: All other systems reviewed with the patient and are negative unless otherwise stated. Exam Vital Signs (past 8 hours): - 05/29/24 11:41 05/29/24 11:42 05/29/24 11:42 Pulse Rate 75 75 Respiratory Rate 21 Blood Pressure 158/74 H Pulse Oximetry 96 96 Oxygen Delivery Method 05/29/24 11:45 05/29/24 11:45 05/29/24 12:00 Pulse Rate 79 Respiratory Rate 18 Blood Pressure 150/69 H 146/67 H Pulse Oximetry 97 Oxygen Delivery Method 05/29/24 12:00 05/29/24 12:15 05/29/24 12:15 Pulse Rate 75 78 Respiratory Rate 22 Blood Pressure 153/69 H Pulse Oximetry 97 96 Oxygen Delivery Method 05/29/24 12:30 05/29/24 13:00 05/29/24 13:30 Pulse Rate 77 74 74 Respiratory Rate 21 Blood Pressure Pulse Oximetry 97 94 95 Oxygen Delivery Method 05/29/24 15:17 05/29/24 15:20 05/29/24 15:30 Pulse Rate 68 72 Respiratory Rate Blood Pressure Pulse Oximetry 96 95 Oxygen Delivery Method Room Air 05/29/24 15:39 05/29/24 15:39 05/29/24 15:43 Pulse Rate 74 Respiratory Rate 21 Blood Pressure 154/70 H Pulse Oximetry 94 95 Oxygen Delivery Method Room Air Oxygen Delivery Method Room Air Narrative Exam Narrative: Gen: No acute distress, WDWN CV: RRR Abd: S NT ND Ext: No edema, joint effusions Neuro: axo x3, only reported visual defect as noted above, sensation intact to light touch, strength +5/5 in all extremities. Objective ECG Impression: Normal sinus rhythm without acute ischemia as interpreted by me Labs 05/29/24 10:50 05/29/24 10:50 Labs: Laboratory Results - last 24 hr 05/29/24 10:50 WBC 7.4 RBC 4.73 Hgb 14.2 Hct 42.0 MCV 88.7 MCH 30.0 MCHC 33.8 RDW 13.4 Plt Count 248 Neut % (Auto) 50.4 Lymph % (Auto) 31.8 [place] % (Auto) 9.4 Eos % (Auto) 7.4 H Baso % (Auto) 1.0 Neut # (Auto) 3700 Lymph # (Auto) 2300 [place] # (Auto) 700 Eos # (Auto) 500 H Baso # (Auto) 100 ESR 6 PT 10.5 INR 0.9 APTT 32 Sodium 140 Potassium 3.7 Chloride 107 Carbon Dioxide 23 BUN 16 Creatinine 0.67 Estimated GFR > 60 BUN/Creatinine Ratio 23.9 H Glucose 127 H Calcium 9.2 Total Bilirubin 0.4 AST 27 ALT 22 Alkaline Phosphatase 85 C-Reactive Protein < 0.5 Total Protein 7.2 Albumin 4.4 Globulin 2.8 Albumin/Globulin Ratio 1.6 Assessment & Plan Assessment & Plan narrative: 1. Retinal artery occlusion of L eye - asa and plavix load ordered and given - continue DAPT with asa and plavix for 21 days, followed by lifelong asa 81 mg daily - atorvastatin 40 mg nightly for high intensity statin - A1c, Lipids, and TSH ordered - echocardiogram without atrial enlargement, has normal EF, and no evidence of PFO. - MRI without evidence of infarct. CTA without significant carotid disease. - ESR is normal, patient with some neck pain but vasculitis is highly unlikely. - recommended against driving, and follow up with ophthalmology as outpatient - completed OT screen today. 2. Elevated BP without a diagnosis of HTN - continue to follow BP, patient reports normally low normal values. Suspect will improve with time. 3. GERD - continue home PPI Code: Full, surrogate is patient's long time friend Taylor Hernandez DVT: Lovenox daily I have utilized all available immediate resources to obtain, update, or review the patient's current medications. Dispo: patient admitted under inpatient status. Unclear if will be able to discharge home or possible SNF, will have PT/OT evaluations. Additional history obtained via discussions with the ER provider. These discussions contributed to the creation of the above assessment and plan. I have reviewed patient's presenting documentation, labs, and imaging personally. Time-Based Coding :: [TOTAL MINUTES] spent with patient and on the chart (including review of chart, obtaining history, exam, reviewing outside data, placing orders, documenting exam and treatment plan, and counseling patient) on [DATE]. Quality VTE Deep Vein Thrombosis/Pulmonary Embolism Present on Admission: No
[2024-05-29] MEDS: ASPIRIN EC 81 MG TABLET PO (20:27)
[2024-05-29] MEDS: ATORVASTATIN 20 MG TABLET 40 MG PO (20:27)
[2024-05-29] MEDS: ACETAMINOPHEN 325 MG TABLET 650 MG PO (20:28)
[2024-05-30] VITALS: O2SAT 95
[2024-05-30 03:00] VITALS: BP 126/70; PULSE 66; RESP 18; TEMP 36.6; O2SAT 93
[2024-05-30 04:00] VITALS: O2SAT 96
[2024-05-30] MEDS: PANTOPRAZOLE DR 20 MG TABLET PO (06:14)
--- NOTE | 2024-05-30 06:58 | PC.NURSE ---
Pt resting in bed most of the shift. Up to the bathroom w/sba, gait steady. Pt has been a&o calm and cooperative.
--- NOTE | 2024-05-30 07:43 | PM.DS.1 ---
History of Present Illness History of Present Illness Date Patient Seen: 05/30/24 Time Patient Seen: 10:46 Chief complaint: arellano spot in vision, poss stroke sent by provider Narrative: 78 year old female with no significant PMH, mild GERD who presented with acute onset of left vision change starting yesterday morning. Patient went to see the sounding device operator who noted evidence of a retinal artery occlusion on the L and sent patient to the ER. She does report intermittent brief palpitations, and neck pain with occasional headaches. Denies fever, chills, nausea, vomiting, diarrhea, rash, dysuria or urinary frequency. In the ER, Patient was mildly hypertensive, but the remainder of her vitals were unremarkable. Laboratory evaluation was unremarkable. ESR was 6. Initial head CT showed no hemorrhage, and CT angiogram was without significant carotid disease. MRI of brain has already been performed and did not show any acute infarcts. Echocardiogram was performed which showed a normal ejection fraction, no PF, and no atrial enlargement. She was admitted for further observation after retinal artery occlusion. Discharge Providers Provider Date of admission: 05/29/24 15:00 Discharge Date: 05/30/24 Consults: 05/29/24 15:43 Consult to Occupational Therapy Evaluate & Treat Comment: Physician Instructions: Evaluate and treat Discharge provider: Sherry Talley MD Summary Hospital Course Hospital Course: 1. Retinal artery occlusion of L eye - asa and plavix load ordered and given - continue DAPT with asa and plavix for 21 days, followed by lifelong asa 81 mg daily - atorvastatin 40 mg nightly for high intensity statin - A1c, Lipids, and TSH pending - echocardiogram without atrial enlargement, has normal EF, and no evidence of PFO. - MRI without evidence of infarct. CTA without significant carotid disease. - ESR is normal, patient with some neck pain but vasculitis is highly unlikely. - recommended against driving, and follow up with ophthalmology as outpatient 2. Elevated BP without a diagnosis of HTN - continue to follow BP, patient reports normally low normal values. Suspect will improve with time. 3. GERD - continue home PPI Status at Discharge Cognitive/behavioral status at discharge: at baseline, oriented Functional status at discharge: independent ambulation Overall status at discharge: patient is back to baseline Exam Vital Signs (past 8 hours): - 05/30/24 00:00 05/30/24 03:00 05/30/24 04:00 Temperature 97.9 F Pulse Rate 66 Respiratory Rate 18 Blood Pressure 126/70 Pulse Oximetry 95 93 96 Oxygen Delivery Method Room Air Room Air Oxygen Flow Rate 0 Oxygen Delivery Method Room Air Oxygen Flow Rate 0 Narrative Exam Narrative: She says that her vision is better and that the spot to the left of center now looks like is being scraped off. Oriented x3 Heart is regular rate and rhythm without murmur Lungs are clear to auscultation bilaterally No ankle edema Neuro exam: Cranial nerves 2-12 test intact Motor function is 5/5 throughout There is no dysmetria No significant visual field defect Objective Labs 05/29/24 10:50 05/29/24 10:50 Labs: Laboratory Results - last 24 hr 05/29/24 10:50 WBC 7.4 RBC 4.73 Hgb 14.2 Hct 42.0 MCV 88.7 MCH 30.0 MCHC 33.8 RDW 13.4 Plt Count 248 Neut % (Auto) 50.4 Lymph % (Auto) 31.8 [place] % (Auto) 9.4 Eos % (Auto) 7.4 H Baso % (Auto) 1.0 Neut # (Auto) 3700 Lymph # (Auto) 2300 [place] # (Auto) 700 Eos # (Auto) 500 H Baso # (Auto) 100 ESR 6 PT 10.5 INR 0.9 APTT 32 Sodium 140 Potassium 3.7 Chloride 107 Carbon Dioxide 23 BUN 16 Creatinine 0.67 Estimated GFR > 60 BUN/Creatinine Ratio 23.9 H Glucose 127 H Calcium 9.2 Total Bilirubin 0.4 AST 27 ALT 22 Alkaline Phosphatase 85 C-Reactive Protein < 0.5 Total Protein 7.2 Albumin 4.4 Globulin 2.8 Albumin/Globulin Ratio 1.6 [facility] Medical History (Updated 05/30/24 @ 10:49 by Sherry Talley MD) Acute retinal artery occlusion Surgical History Status post surgery (10/18/14) Status post dilation and curettage (02/17/80) Status post laparoscopy Status post appendectomy Status post tonsillectomy and adenoidectomy History of third molar tooth extraction Social History household members: none Smoking Status: Never smoker alcohol intake: current Discharge Assessment & Plan Assessment and Plan Plan of Treatment: See above Discharge Plan Discharge Plan Patient Disposition: Home Discharge orders & Medications Prescriptions: New aspirin 81 mg Tablet,Delayed Release (Dr/Ec) 81 mg PO BID Qty: 90 0RF atorvastatin 20 mg Tablet 40 mg PO BEDTIME Qty: 90 0RF clopidogrel 75 mg Tablet 75 mg PO DAILY Qty: 19 0RF Continued gabapentin 600 mg tablet 600 mg PO BID omeprazole 20 mg capsule,delayed release(DR/EC) 20 mg PO DAILY clonazepam 0.5 % (w/w) PO DAILY PRN (Reason: Insomnia) cholecalciferol (vitamin D3) [Vitamin D3] 1,000 UNIT tablet 5,000 u PO QDAY Qty: 0 turmeric 400 mg Capsule 400 mg PO DAILY glucosamine-chondroitin 1,500-1,200 mg/30 mL Liquid 30 ml PO DAILY Follow up/Referrals: Taylor Soto PA-C [Non-Staff] - Diet/Activity/Treatments Diet: Low-cholesterol Visit Report/Discharge Packet Instructions: How to Prevent Falls Stand Alone Forms: Patient Portal/API, Stroke Signs & Symptoms Discharge Data Attending Provider: Juan Sin Admjob Date/Time: 05/29/24 15:00 Quality VTE Deep Vein Thrombosis/Pulmonary Embolism Present on Admission: No
[2024-05-30 08:00] VITALS: BP 157/85; PULSE 76; RESP 17; TEMP 36.7; O2SAT 95
[2024-05-30] MEDS: ASPIRIN EC 81 MG TABLET PO (08:39)
[2024-05-30] MEDS: CLOPIDOGREL 75 MG TABLET PO (08:39)
[2024-05-30 11:31] LABS: Add Manual Diff / Slide Review NO; Basophils Absolute Auto 0 /uL (0-100); Basophils Percent Auto 0.5 % (0-2); Eosinophils Absolute Auto 200 /uL (0-450); Hematocrit 43.1 % (36-46); Hemoglobin 14.5 g/dL (12.0-16.0); Lymphocytes Absolute Auto 1700 /uL (1100-4500); Lymphocytes Percent Auto 28.2 % (25-40); Mean Corpuscular HGB Conc 33.6 % (30-36); Mean Corpuscular Hemoglobin 29.6 PG (26-34); Mean Corpuscular Volume 88.2 fL (80-100); Monocytes Absolute Auto 500 /uL (0-900); Monocytes Percent Auto 8.3 % (3-14); Neutrophils Absolute Auto 3600 /uL (1500-7000); Platelet Count 255 X10^3/uL (150-400); Red Blood Cell Count 4.89 X10^6/uL (4.0-5.2); Red Cell Distribution Width 13.8 % (11.6-14.8); White Blood Cell Count 6.2 X10^3/uL (4.5-11.0)
[2024-05-30 11:44] LABS: BUN Creatinine Ratio 16.7 (6-22); Blood Urea Nitrogen 10 mg/dL (7-17); Calcium 9.4 mg/dL (8.4-10.2); Carbon Dioxide 23 mmol/L (22-32); Chloride 108 mmol/L (98-107); Cholesterol 231 mg/dL (140-199); Estimated Glomerular Filt Rate > 60 mL/min (>60); Glucose 102 mg/dL (80-110); HDL Cholesterol 82 mg/dL (40-60); HEMOLYSIS < 15 (0-50); LDL Cholesterol Calculated 120 mg/dL (<100); Potassium 4.3 mmol/L (3.4-5.1); Sodium 138 mmol/L (137-145); Triglycerides 144 mg/dL (35-150)
[2024-05-30 12:00] VITALS: BP 132/98; PULSE 85; RESP 18; TEMP 36.9; O2SAT 96
[2024-05-30 12:15] LABS: TSH w/ Reflex to FT4 1.01 uIU/mL (0.47-4.68)
[2024-05-30 12:33] LABS: Hemoglobin A1C% w Est Avg Glu 5.7 % (4.0-6.0)
--- NOTE | 2024-05-30 13:37 | CM.DANOTE ---
Discharge Planning/Care Management CM Discharge Assessment Start: 05/30/24 13:35 Freq: Status: Active Protocol: Document 05/30/24 13:35 MARSHA (Rec: 05/30/24 13:37 MARSHA [id number]) Discharge Planning Assessment Assigned Hot Molder NYDIA Trotter DPOA/Assigned Designee Name Taylor Hernandez, friend Contact Information [phone] Advance Directives? Yes Advance Directives on File No History Provided By Patient,Friend,Medical Record Prior Living Arrangements House Household Members none Type of transporation used prior to Drives own vehicle admit Independent with ADL's Yes Is patient alert and oriented? Yes Patient/Family Preference OP OT Therapy Barriers to Discharge No Comment Provided priority board pass for to [facility]. Discharge Plan Home Transportation Arrangement Friend Referrals Initiated None needed
--- NOTE | 2024-05-30 13:41 | PC.NURSE ---
Feels ready to d/c to home. Seen by Dr. Talley and given d/c instructions. Pt reports she is seeing better today. Less blurry in the left eye and less sensative to light. The black spot in her ey has changed to brown and she is starting to see through it. Reviewed d/c instructions/packet. Questions answered. Pt d/c to home via auto with her friend. Voiced no concerns.
== END 2024-05-30 13:30 | disposition home or self-care (01) ==
LOC: ED 12:21 → AC 15:01
PROVIDERS: Admitting Provider Internal Medicine; Emergency Provider Emergency Medicine; Referring Provider Emergency Medicine; Visit Provider Internal Medicine
DX: H34.9 Unspecified retinal vascular occlusion (principal); R29.700 NIHSS score 0; R03.0 Elevated blood-pressure reading, without diagnosis of hypertension; K21.9 Gastro-esophageal reflux disease without esophagitis
CPT/HCPCS: 36415; 70450; 70496; 70498; 70551; 72131; 80048; 80053; 80061; 83036; 84443; 85025; 85610; 85651; 85730; 86140; 93005; 93307; 96360; 97165; 97530; 97535; 99284; G0378; Q9967

== ENCOUNTER → 2024-08-25 07:38 | Outpatient (CLI) | payer MEDICARE, OTHER, SELFPAY ==
[2024-05-29 15:52] VITALS: BMI 23.0
--- NOTE | 2024-08-25 07:39 | DI.MG.S_ITS ---
BILATERAL DIGITAL SCREENING MAMMOGRAM 3D/2D WITH CAD: 08/25/2024 CLINICAL: Routine screening. Comparison is made to exams dated: 06/17/2023 mammogram, 08/29/2017 mammogram - [facility], 08/13/2017 mammogram - [facility], 04/19/2016 mammogram, 04/05/2016 mammogram - [facility], and 09/28/2014 mammogram - [facility] Saturday. The breasts are heterogeneously dense, which may obscure small masses (category c / 51-75% glandular tissue). Current study was also evaluated with a Computer Aided Detection (CAD) system. No significant masses, calcifications, or other findings are seen in either breast. There has been no significant interval change. IMPRESSION: NEGATIVE There is no mammographic evidence of malignancy. A 1 year screening mammogram is recommended. Based on the Tyrer Cuzick model (a risk assessment model) the patient's lifetime risk is 6.3% and her 10 year risk is 0.0%. According to the ACR, ACS, and NCCN guidelines, an annual breast MRI exam along with mammogram is recommended if the patient's lifetime risk is 20% or greater. This exam was interpreted at Station ID: [id number]. NOTE: For mammograms, a report in lay terms will be sent to the patient. Approximately 15% of breast malignancies will not be visualized mammographically. In the management of a palpable breast mass, a negative mammogram must not discourage biopsy of a clinically suspicious lesion. Electronically Signed By: Shabana Way M.D., Ph.D. yari/[email or web address]:08/26/2024 17:11:43 letter sent: Normal Exam ACR BI-RADS Category 1: Negative
== END ==
PROVIDERS: PCP Physician Assistant; Referring Provider Physician Assistant; Visit Provider Physician Assistant
DX: Z12.31 Encounter for screening mammogram for malignant neoplasm of breast (principal); R92.333 Mammographic heterogeneous density, bilateral breasts
CPT/HCPCS: 77063; 77067